=== PATIENT | male | born 1970 | race Caucasian/White ===

== ENCOUNTER 2016-10-22 14:25 | Emergency (ER) | payer OTHER ==
[~2016-10-22] VITALS: Ht 190.5 cm; Wt 122.7 kg
[2016-10-22] MEDS ORDERED: SODIUM CHLORIDE FLUSH 3 ML SYR IV ONE (14:40)
[2016-10-22] MEDS ORDERED: SODIUM CHLORIDE FLUSH 10 ML SYR IV PRN (14:40)
[2016-10-22] MEDS ORDERED: morphine INJ 2 MG/ML 1 ML SYRINGE IV PRN (14:40)
[2016-10-22] MEDS ORDERED: NS IV 500 ML 500 ML IV SCH (14:40)
[2016-10-22 14:52] LABS: BASOPHILS % (AUTO) 0 % (0-2); EOSINOPHILS # (AUTO) 0.2 10^3uL; EOSINOPHILS % (AUTO) 2 % (0-4); LYMPHOCYTES # (AUTO) 2.4 X10^3; MEAN CORPUSCULAR HEMOGLOBIN 30.8 PG (26.0-34.0); MEAN CORPUSCULAR VOLUME 88 FL (80-100); MEAN PLATELET VOLUME 11.7 FL (6.0-9.5); MONOCYTES # (AUTO) 0.9 X10^3; MONOCYTES % (AUTO) 8 % (3-11); NEUTROPHILS # (AUTO) 7.6 X10^3; NEUTROPHILS % (AUTO) 68 % (51-67); PLATELET COUNT 260 10^3uL (150-450); WHITE BLOOD COUNT 11.21 10^3uL (4.0-11.0)
[2016-10-22 15:01] LABS: D-DIMER* < 215 ng/mL (0-500)
[2016-10-22 15:05] LABS: ALBUMIN 4.5 g/dL (3.4-5.0); ALKALINE PHOSPHATASE 69 U/L (38-126); ANION GAP 15.1 MEQ/L (3-15); BUN/CREATININE RATIO 23 (10-20); CALCULATED IONIZED CALCIUM 3.7 mg/dL (3.8-4.6); TOTAL PROTEIN 8.1 g/dL (6.4-8.5)
[2016-10-22 15:09] LABS: CREATINE KINASE 319 U/L (55-170)
[2016-10-22 15:58] LABS: BILIRUBIN,URINE Negative (Negative); CLARITY,URINE Clear; COLOR,URINE Yellow; GLUCOSE, URINE (UA) Negative (Negative); LEUKOCYTE ESTERASE ,URINE Negative (Negative); UROBILINOGEN,URINE 0.2 mg/dL (0.2-1.0)
[2016-10-22 16:10] LABS: AMPHETAMINE SCREEN, URINE Negative (Negative); CANNABINOID SCREEN, URINE Negative (Negative); METHAMPHETAMINE SCREEN URINE S NEGATIVE (NEGATIVE); OPIATE SCREEN URINE Positive (Negative); PROPOXYPHENE STAT NEGATIVE (NEGATIVE)
[2016-10-22 16:25] VITALS: BP 103/73
== END 2016-10-22 16:24 | disposition home or self-care (01) ==
LOC: EDUNIT# 14:25 → ED 14:28
DX: M94.0 Chondrocostal junction syndrome [Tietze] (principal); R06.00 Dyspnea, unspecified
CPT/HCPCS: 36415; 71010; 80053; 80307; 80320; 81003; 82550; 82553; 83880; 84443; 84484; 85025; 85379; 85610; 86140; 93005; 96360; 99284; J7040; 93010; 99285

== ENCOUNTER → 2016-10-22 | Outpatient (CLI) | payer OTHER | LOC: EMS 14:20 | PROVIDERS: ATTEND Family Medicine | DX: R07.89 Other chest pain (principal) ==